=== PATIENT | male | born 1955 | race Caucasian/White ===

== ENCOUNTER 2016-11-22 21:57 | Inpatient (IN) | payer BC ==
[~2016-11-22 21:57] MED LIST: ADVIL200 M1 PO; ADVIL200 MG PO; ASPIRIN325 MG PO; LUPRON; NUCYNTA50 MG PO; SENOKOT-S TABLE1 TAB PO; TYLENOL325 M1 PO; TYLENOL500 MG PO
[2016-11-22] MEDS ORDERED: STERIODS (22:22)
[2016-11-22] MEDS ORDERED: CHEMO (22:22)
[2016-11-22] MEDS ORDERED: ZOFRAN8 M1 PO (22:23)
[2016-11-22] MEDS ORDERED: ANTIDEPRESANT (22:35)
[2016-11-22 22:58] LABS: HCT-HEMATOCRIT 29.3 % (36.0-53.5); HGB-HEMOGLOBIN 9.4 gm/dl (13.5-17.0); MCH (MEAN CORPUSCULAR HGB) 28.2 pg (28.0-32.0); MCHC MEAN CORPUSCULAR HGB CONC 32.1 % (32.0-36.0); NEUTROPHIL-AUTOMATED 5.7 tho/cmm (1.6-8.0); PLATELET COUNT 127 tho/cmm (150-450); RED BLOOD COUNT 3.33 mil/cmm (4.40-5.70); RED CELL DISTRIBUTION WIDTH 16.5 % (12.4-16.4); WHITE BLOOD COUNT 7.5 tho/cmm (4.0-10.0)
[2016-11-22 23:13] LABS: ALB/GLOB RATIO 0.9 (0.8-2.0); ALBUMIN 3.3 g/dl (3.5-5.0); ALKALINE PHOSPHATASE 74 U/L (33-138); ALT/SGPT 16 U/L (12-78); ANION GAP 13 mmol/L (0-20); AST/SGOT 16 U/L (10-40); BILIRUBIN,TOTAL 0.7 mg/dl (0.0-1.5); BLOOD UREA NITROGEN 13 mg/dl (6-24); CALCIUM 8.4 mg/dl (8.5-10.5); CARBON DIOXIDE-VENOUS 27 mmol/L (22-32); CHLORIDE 100 mmol/l (96-110); CREATININE 0.88 mg/dl (0.60-1.30); GLUCOSE 112 mg/dL (70-110); POTASSIUM 4.1 mmol/L (3.7-5.1); SODIUM 136 mmol/L (135-145); eGFR VALUE FOR BLACK >90 mL/Min
[2016-11-22 23:42] LABS: PROCALCITONIN 0.18 ng/ml (0.05-0.09)
[2016-11-22 23:47] LABS: URINE BILIRUBIN NEGATIVE (NEG); URINE BLOOD NEGATIVE (NEG); URINE GLUCOSE (UA) NEGATIVE (NEG); URINE KETONE NEGATIVE (NEG); URINE LEUKOCYTE ESTERASE NEGATIVE (NEG); URINE NITRITE NEGATIVE (NEG); URINE PROTEIN NEGATIVE (NEG); URINE SPECIFIC GRAVITY 1.015 (1.003-1.030)
[2016-11-22 23:51] LABS: URINE APPEARANCE CLEAR; URINE COLOR YELLOW
[2016-11-23 00:03] LABS: BAND % 21 % (0-20); BAND ABSOLUTE COUNT 1.6 tho/cmm (0-2.0)
[2016-11-23] MEDS ORDERED: NORCO 5-325 TA1 EACH PO (03:00)
[2016-11-23] MEDS ORDERED: ATIVAN1 M2 PO (03:00)
[2016-11-23] MEDS ORDERED: LEXAPRO20 M2 PO (03:00)
[2016-11-23] MEDS ORDERED: COMPAZINE10 MG PO (03:01)
[2016-11-23] MEDS ORDERED: TYLENOL PM EX-1 EAC4 PO (03:01)
[2016-11-23 03:53] LABS: INR 1.2 INR (0.9-1.1); PROTHROMBIN TIME 14.6 SECONDS (9.0-13.6)
[2016-11-23 06:24] LABS: HCT-HEMATOCRIT 24.1 % (36.0-53.5); HGB-HEMOGLOBIN 7.7 gm/dl (13.5-17.0); MCH (MEAN CORPUSCULAR HGB) 28.2 pg (28.0-32.0); MCV (MEAN CELL VOLUME) 88.3 fl (82.0-96.0); MEAN PLATELET VOLUME 9.2 cmc (9.4-12.4); NEUTROPHIL-AUTOMATED 5.2 tho/cmm (1.6-8.0); PLATELET COUNT 101 tho/cmm (150-450); RED BLOOD COUNT 2.73 mil/cmm (4.40-5.70); WHITE BLOOD COUNT 6.7 tho/cmm (4.0-10.0)
[2016-11-23 06:28] LABS: BASO % 0.1 % (0-2); EOS % 0.1 % (0-7); IMMATURE GRANULOCYTES ABSOLUTE 0.59 tho/cmm (0-0.03); IMMATURE GRANULOCYTES PERCENT 8.8 % (0-0.3); LYMPH % 3.7 % (20-45); LYMPH ABSOLUTE COUNT 0.3 tho/cmm (0.8-4.5); MONOCYTE ABSOLUTE COUNT 0.7 tho/cmm (0.0-1.2); NEUTROPHIL ABSOLUTE COUNT 5.2 tho/cmm (1.6-8.0); NEUTROPHILS % 77.3 % (40-80)
[2016-11-23 06:39] LABS: ANION GAP 11 mmol/L (0-20); BLOOD UREA NITROGEN 10 mg/dl (6-24); C-REACTIVE PROTEIN 4.6 mg/dl (0-0.9); CALCIUM 7.3 mg/dl (8.5-10.5); CARBON DIOXIDE-VENOUS 27 mmol/L (22-32); CHLORIDE 106 mmol/l (96-110); CREATININE 0.65 mg/dl (0.60-1.30); GLUCOSE 99 mg/dL (70-110); SODIUM 140 mmol/L (135-145); eGFR VALUE FOR BLACK >90 mL/Min
[2016-11-23] MEDS ORDERED: PREDNISONE5 M1 PO (11:19)
[2016-11-24 05:49] LABS: HCT-HEMATOCRIT 24.9 % (36.0-53.5); MCH (MEAN CORPUSCULAR HGB) 28.2 pg (28.0-32.0); MCHC MEAN CORPUSCULAR HGB CONC 32.1 % (32.0-36.0); MCV (MEAN CELL VOLUME) 87.7 fl (82.0-96.0); MEAN PLATELET VOLUME 9.7 cmc (9.4-12.4); NEUTROPHIL-AUTOMATED 7.2 tho/cmm (1.6-8.0); PLATELET COUNT 112 tho/cmm (150-450); RED BLOOD COUNT 2.84 mil/cmm (4.40-5.70); RED CELL DISTRIBUTION WIDTH 17.1 % (12.4-16.4); WHITE BLOOD COUNT 9.5 tho/cmm (4.0-10.0)
[2016-11-24 07:50] LABS: BAND % 29 % (0-20); BAND ABSOLUTE COUNT 2.8 tho/cmm (0-2.0)
[2016-11-25 05:17] LABS: HCT-HEMATOCRIT 26.4 % (36.0-53.5); HGB-HEMOGLOBIN 8.5 gm/dl (13.5-17.0); MCH (MEAN CORPUSCULAR HGB) 28.4 pg (28.0-32.0); MCHC MEAN CORPUSCULAR HGB CONC 32.2 % (32.0-36.0); MCV (MEAN CELL VOLUME) 88.3 fl (82.0-96.0); MEAN PLATELET VOLUME 9.3 cmc (9.4-12.4); NEUTROPHIL-AUTOMATED 6.9 tho/cmm (1.6-8.0); PLATELET COUNT 111 tho/cmm (150-450); RED BLOOD COUNT 2.99 mil/cmm (4.40-5.70); RED CELL DISTRIBUTION WIDTH 17.1 % (12.4-16.4)
[2016-11-25 06:14] LABS: BAND % 29 % (0-20); BAND ABSOLUTE COUNT 2.6 tho/cmm (0-2.0)
[2016-11-26 05:48] LABS: HCT-HEMATOCRIT 27.8 % (36.0-53.5); MCH (MEAN CORPUSCULAR HGB) 28.5 pg (28.0-32.0); MCHC MEAN CORPUSCULAR HGB CONC 32.4 % (32.0-36.0); MEAN PLATELET VOLUME 9.8 cmc (9.4-12.4); NEUTROPHIL-AUTOMATED 7.7 tho/cmm (1.6-8.0); PLATELET COUNT 138 tho/cmm (150-450); RED BLOOD COUNT 3.16 mil/cmm (4.40-5.70); RED CELL DISTRIBUTION WIDTH 17.1 % (12.4-16.4); WHITE BLOOD COUNT 9.7 tho/cmm (4.0-10.0)
[2016-11-26 07:24] LABS: BAND % 29 % (0-20); BAND ABSOLUTE COUNT 2.8 tho/cmm (0-2.0)
[2016-11-26] MEDS ORDERED: MUCINEX600 M1 PO (14:25)
[2016-11-26] MEDS ORDERED: IMODIUM A-D2 M4 PO (14:26)
[2016-11-26] MEDS ORDERED: LEVAQUIN750 M1 PO (14:27)
== END 2016-11-26 15:30 | DRG 871 ==
LOC: EDMED 21:57 → EMR2 11-23 00:51 → 5WE 11-23 02:20
PROVIDERS: Emergency Medicine; Internal Medicine Hematology & Oncology; Registered Nurse; ADMIT Family Medicine
DX: A41.9 Sepsis, unspecified organism (principal); J15.6 Pneumonia due to other Gram-negative bacteria; E87.2 Acidosis; C79.51 Secondary malignant neoplasm of bone; D69.6 Thrombocytopenia, unspecified; J15.9 Unspecified bacterial pneumonia; K59.00 Constipation, unspecified; Y95 Nosocomial condition; Z92.21 Personal history of antineoplastic chemotherapy; Z92.3 Personal history of irradiation; Z85.46 Personal history of malignant neoplasm of prostate; D63.8 Anemia in other chronic diseases classified elsewhere; B34.8 Other viral infections of unspecified site; R91.8 Other nonspecific abnormal finding of lung field
CPT/HCPCS: J0692; J1650; J1956; J2270; J2405; J2543; J3370; J7030; J7512; P9045; Q9967